=== PATIENT | male | born 1965 ===

== ENCOUNTER 2019-06-19 18:17 | Emergency (ER) | payer SELFPAY ==
[2019-06-19] MEDS ORDERED: Lidocaine 1% w/Epinephrine 1:100K 20 ML VIAL ONE (18:29)
== END 2019-06-19 19:11 ==
LOC: ERS 18:17
DX: S01.81XA Laceration without foreign body of other part of head, initial encounter (principal); S01.311A Laceration without foreign body of right ear, initial encounter; V47.5XXA Car driver injured in collision with fixed or stationary object in traffic accident, initial encounter
CPT/HCPCS: 12013